=== PATIENT | male | born 1960 | race Caucasian/White ===

== ENCOUNTER 2025-04-03 01:46 | Observation (INO) | payer BC ==
[2025-04-03] MEDS ORDERED: Sodium Chloride 0.9% 1000 ML 1,000 ML ONE (02:18)
[2025-04-03] MEDS: Sodium Chloride 0.9% 1000 ML 1,000 ML IV SCH ×2 (02:18→05:49)
--- NOTE | 2025-04-03 02:20 | ERPHSYRPT ---
- History of Present Illness Time Seen by Provider: 04/03/25 02:16 Historian: patient Exam Limitations: no limitations Patient Subjective Stated Complaint: "I've been constipated and my stomach has been swollen for 3-4 days, today around 4pm my stomach started hurting really bad". Triage Nursing Assessment: Pt presents to ER with complaints of abdominal distention and constipation for 3 days, RUQ abdominal pain that began today at approx 1600. Pt abdomen is full, tender, and round upon exam. Rates pain 10/10 scale and worsens with palpation. Pt states has tried milk of mag to help w/ symptoms and was able to have small bowel movement last night. Pt has had decreased appetite and an episode of vomiting yesterday. Pt is alert and oriented x 3. Skin is pink, warm, and dry. Respirations are easy. Bowel sounds are diminished throughout. Abdomen very tender upon exam. Able to ambulate and communicate without difficulty. Physician History: Patient is a 64-year-old male presents to our ED for evaluation of generalized abdominal pain. Patient states his abdomen is distended. He has not had a bowel movement in 3 to 4 days. Patient has been taking laxatives but states his bowel movements have been very small. Pain became acutely worse today at approximately 4 PM. No trauma no fever. Patient rates his pain 10 out of 10 if he moves. However patient declined pain medication. Patient states "I am not being on pain medication". Patient otherwise feels well. at bedside. They voiced no other complaints or concerns at this time. Portions of this note were created with voice recognition technology. There may be grammatical, spelling, punctuation or sound alike errors Timing/Duration: day(s) (4 days) Activities at Onset: none Quality: aching Abdominal Pain Onset Location: generalized abdomen (Generalized abdominal pain but worse in the right upper quadrant) Pain Radiation: no radiation Severity of Pain-Max: moderate Severity of Pain-Current: mild Modifying Factors: Improves With: palpation Associated Symptoms: denies symptoms Previous symptoms: no prior history Allergies/Adverse Reactions: acetaminophen [From Vicodin] Allergy (Intermediate, Verified 04/03/25 02:25) agitation/angry hydrocodone [From Vicodin] Allergy (Intermediate, Verified 04/03/25 02:25) agitation/angry Home Medications: Furosemide 20 mg [Lasix 20 mg] 20 mg PO DAILY 04/03/25 [History] Potassium Chloride Tab* [Klor Con] 20 meq PO DAILY 04/03/25 [History] Tamsulosin HCl [Flomax] 0.4 mg PO DAILY 04/03/25 [History] Testosterone Cypionate 0.5 ml SQ WEEKLY 04/03/25 [History] armodafiniL [Armodafinil] 150 mg PO DAILY 04/03/25 [History] Hx Tetanus, Diphtheria Vaccination/Date Given: No Hx Influenza Vaccination/Date Given: No Hx Pneumococcal Vaccination/Date Given: No Immunizations Up to Date: Yes Travel Risk - International Travel Have you traveled outside of the country in past 3 weeks: No - Emerging Infectious Disease Are you exhibiting symptoms associated with any current EIDs: No - Review of Systems Constitutional: No Symptoms, No Fever, No Chills Eyes: No Symptoms Ears, Nose, & Throat: No Symptoms Respiratory: No Symptoms, No Cough, No Dyspnea Cardiac: No Symptoms, No Chest Pain, No Edema, No Syncope Abdominal/Gastrointestinal: No Symptoms, No Abdominal Pain, No Nausea, No Vomiting, No Diarrhea Genitourinary Symptoms: No Symptoms, No Dysuria Musculoskeletal: No Symptoms, No Back Pain, No Neck Pain Skin: No Symptoms, No Rash Neurological: No Symptoms, No Dizziness, No Focal Weakness, No Sensory Changes Psychological: No Symptoms Endocrine: No Symptoms Hematologic/Lymphatic: No Symptoms Immunological/Allergic: No Symptoms All Other Systems: Reviewed and Negative - Past Medical History Pertinent Past Medical History: Yes Neurological History: No Pertinent History, Seizures ENT History: No Pertinent History Cardiac History: No Pertinent History Respiratory History: No Pertinent History Endocrine Medical History: No Pertinent History Musculoskeletal History: No Pertinent History GI Medical History: No Pertinent History History: No Pertinent History Psycho-Social History: No Pertinent History Male Reproductive Disorders: Prostate Problems Other Medical History: childhood seizures (stopped at 14 years old) - Past Surgical History Past Surgical History: Yes Neuro Surgical History: No Pertinent History Cardiac: No Pertinent History Respiratory: No Pertinent History Gastrointestinal: No Pertinent History Genitourinary: No Pertinent History Musculoskeletal: Orthopedic Surgery Male Surgical History: No Pertinent History - Social History Smoking Status: Current every day smoker Exposure to second hand smoke: No Drug Use: none - Social Determinants of Health Will the patient participate in the screening: Yes Do you worry about a steady place to live?: No Do you have any problems with any of the following?: No known problems In the past 12 months,have you had to go without utilities?: No Transportation Issues: No Has anyone in your support network made you feel unsafe?: No Have you or anyone in your house had to go w/o enough food: No - Nursing Vital Signs Nursing Vital Signs: Initial Vital Signs Temperature 98.6 F 04/03/25 01:51 Pulse Rate 91 H 04/03/25 01:51 Respiratory Rate 16 04/03/25 01:51 Blood Pressure 146/85 04/03/25 01:51 O2 Sat by Pulse Oximetry 98 04/03/25 01:51 Pain Scale Pain Intensity 10 - Physical Exam General Appearance: no apparent distress, alert Eye Exam: PERRL/EOMI, eyes nml inspection Ears, Nose, Throat Exam: normal ENT inspection, pharynx normal, moist mucous membranes Neck Exam: normal inspection, non-tender, supple, full range of motion Respiratory Exam: normal breath sounds, lungs clear, airway intact, No respiratory distress Cardiovascular Exam: regular rate/rhythm, normal heart sounds Gastrointestinal/Abdomen Exam: soft, tenderness, distention, No mass Back Exam: normal inspection, normal range of motion, No CVA tenderness, No vertebral tenderness Extremity Exam: normal inspection, normal range of motion, pelvis stable Neurologic Exam: alert, oriented x 3, cooperative, normal mood/affect, sensation nml, No motor deficits Skin Exam: normal color, warm, dry Lymphatic Exam: No adenopathy SpO2 Interpretation: normal SpO2: 96 O2 Delivery: Room Air - Course Nursing assessment & vital signs reviewed: Yes - CT Exams Abdomen/Pelvis CT Interpretation: Tele-radiologist Report (Acute calculus cholecystitis. There is a 17 mm gallstone adjacent to the neck of the gallbladder) Ordered Tests: Active Orders 24 hr Category Date Time Status IV Insertion STAT Care 04/03/25 02:14 Active ABDOMEN AND PELVIS W/0 CONTRAS [CT] Stat Exams 04/03/25 02:14 Completed CBC W DIFF Stat Lab 04/03/25 02:22 Completed CMP Stat Lab 04/03/25 02:22 Completed LIPASE Stat Lab 04/03/25 02:22 Completed TROPONIN Q4H Lab 04/03/25 02:22 Completed TROPONIN Q4H Lab 04/03/25 06:15 Ordered TROPONIN Q4H Lab 04/03/25 10:15 Ordered UA W/RFX UR CULTURE Stat Lab 04/03/25 02:17 Completed Transfer Order Routine Transfer 04/03/25 Ordered Medication Summary Generic Name Dose Route Start Last Admin Trade Name Estrella PRN Reason Stop Dose Admin Sodium Chloride 1,000 mls @ 100 mls/hr 04/03/25 02:15 04/03/25 02:18 Sodium Chloride 0.9% 1000 Ml IV 05/03/25 02:14 100 mls/hr .Q10H GODWIN Administration Metronidazole 500 mg in 100 mls @ 200 mls/hr 04/03/25 03:38 04/03/25 03:49 Flagyl 500 Mg Ivpb IV 04/03/25 04:07 200 mls/hr STAT STA 200 mls/hr Administration Ceftriaxone Sodium 2 gm in 100 mls @ 200 mls/hr 04/03/25 03:55 Rocephin 2 Gm/100 Ml Nacl IV 04/03/25 04:24 STAT ONE Discontinued Medications Generic Name Dose Route Start Last Admin Trade Name Estrella PRN Reason Stop Dose Admin Levofloxacin/Dextrose 500 mg in 100 mls @ 100 mls/hr 04/03/25 03:38 Levofloxacin 500mg/100ml D5w IV 04/03/25 04:37 STAT STA Metronidazole Confirm 04/03/25 03:44 Flagyl 500 Mg Ivpb Administered 04/03/25 03:45 Dose 500 mg in 100 mls @ ud IV .STK-MED ONE Ketorolac Tromethamine 30 mg 04/03/25 02:34 04/03/25 02:37 Ketorolac Tromethamine 30 Mg/Ml Inj IV 04/03/25 02:35 30 mg STAT ONE Administration Ketorolac Tromethamine Confirm 04/03/25 02:35 Ketorolac Tromethamine 30 Mg/Ml Inj Administered 04/03/25 02:36 Dose 30 mg .ROUTE .STK-MED ONE Lab/Rad Data: Laboratory Result Diagrams 04/03/25 02:22 04/03/25 02:22 Laboratory Results 04/03/25 04/03/25 04/03/25 Range/Units 02:22 02:22 02:22 WBC 11.8 H (4.23-9.07) x10^3/uL RBC 4.95 (4.63-6.08) x10^6/uL Hgb 14.4 (13.7-17.5) g/dL Hct 42.8 (40.1-51.0) % MCV 86.5 (79.0-92.2) fL MCH 29.1 (25.7-32.2) pg MCHC 33.6 (32.3-36.5) g/dL RDW 13.9 (11.6-14.4) % Plt Count 287 (163-337) x10^3/uL MPV 10.0 (9.4-12.4) fL Gran % 64.0 (34.0-67.9) % Immature Gran % (Auto) 0.5 H (0.001-0.429) % Nucleat RBC Rel Count 0.0 (0.00-0.2) % Eos # (Auto) 0.33 (0.04-0.54) x10^3/uL Immature Gran # (Auto) 0.06 H (0.001-0.031) x10^3u/L Absolute Lymphs (auto) 2.65 (1.32-3.57) x10^3/uL Absolute Monos (auto) 1.16 H (0.30-0.82) x10^3/uL Absolute Nucleated RBC 0.00 (0.00-0.012) x10^3u/L Lymphocytes % 22.5 (21.8-53.1) % Monocytes % 9.8 (5.3-12.2) % Eosinophils % 2.8 (0.8-7.0) % Basophils % 0.4 (0.2-1.2) % Absolute Granulocytes 7.53 H (1.78-5.38) x10^3/uL Basophils # 0.05 (0.01-0.08) x10^3/uL Sodium 136 (135-145) mmol/L Potassium 4.5 (3.5-5.1) mmol/L Chloride 93 L (98-107) mmol/L Carbon Dioxide 32 H (22-30) mmol/L Anion Gap 15.5 H (5-15) MEQ/L BUN 9 (9-20) mg/dL Creatinine 0.71 (0.66-1.25) mg/dL Estimated GFR 103.7 ML/MIN Glucose 106 (74-106) mg/dL Calcium 9.8 (8.4-10.2) mg/dL Total Bilirubin 0.60 (0.2-1.3) mg/dL AST 26 (17-59) U/L ALT 23 (0-50) U/L Alkaline Phosphatase 72 (38-126) U/L Troponin I < 0.012 (0.000-0.033) ng/mL Serum Total Protein 7.3 (6.3-8.2) g/dL Albumin 4.4 (3.5-5.0) g/dL Lipase 209 (23-300) U/L Urine Color (Yellow) Urine Appearance (Clear) Urine pH (4.6-8.0) Ur Specific [place] (1.005-1.030) Urine Protein (Negative) Urine Glucose (UA) (Negative) mg/dL Urine Ketones (Negative) Urine Blood (Negative) Urine Nitrite (Negative) Urine Bilirubin (Negative) Urine Urobilinogen (0.2) mg/dL Ur Leukocyte Esterase (Negative) U Hyaline Cast (Auto) (0-2) /LPF Urine Microscopic RBC (0-5) /HPF Urine Microscopic WBC (0-5) /HPF Ur Epithelial Cells (None Seen) /HPF Urine Bacteria (None Seen) /HPF Urine Culture Reflexed (NO) 04/03/25 Range/Units 02:17 WBC (4.23-9.07) x10^3/uL RBC (4.63-6.08) x10^6/uL Hgb (13.7-17.5) g/dL Hct (40.1-51.0) % MCV (79.0-92.2) fL MCH (25.7-32.2) pg MCHC (32.3-36.5) g/dL RDW (11.6-14.4) % Plt Count (163-337) x10^3/uL MPV (9.4-12.4) fL Gran % (34.0-67.9) % Immature Gran % (Auto) (0.001-0.429) % Nucleat RBC Rel Count (0.00-0.2) % Eos # (Auto) (0.04-0.54) x10^3/uL Immature Gran # (Auto) (0.001-0.031) x10^3u/L Absolute Lymphs (auto) (1.32-3.57) x10^3/uL Absolute Monos (auto) (0.30-0.82) x10^3/uL Absolute Nucleated RBC (0.00-0.012) x10^3u/L Lymphocytes % (21.8-53.1) % Monocytes % (5.3-12.2) % Eosinophils % (0.8-7.0) % Basophils % (0.2-1.2) % Absolute Granulocytes (1.78-5.38) x10^3/uL Basophils # (0.01-0.08) x10^3/uL Sodium (135-145) mmol/L Potassium (3.5-5.1) mmol/L Chloride (98-107) mmol/L Carbon Dioxide (22-30) mmol/L Anion Gap (5-15) MEQ/L BUN (9-20) mg/dL Creatinine (0.66-1.25) mg/dL Estimated GFR ML/MIN Glucose (74-106) mg/dL Calcium (8.4-10.2) mg/dL Total Bilirubin (0.2-1.3) mg/dL AST (17-59) U/L ALT (0-50) U/L Alkaline Phosphatase (38-126) U/L Troponin I (0.000-0.033) ng/mL Serum Total Protein (6.3-8.2) g/dL Albumin (3.5-5.0) g/dL Lipase (23-300) U/L Urine Color Yellow (Yellow) Urine Appearance Clear (Clear) Urine pH 7.0 (4.6-8.0) Ur Specific [place] <=1.005 (1.005-1.030) Urine Protein Negative (Negative) Urine Glucose (UA) Negative (Negative) mg/dL Urine Ketones Negative (Negative) Urine Blood Negative (Negative) Urine Nitrite Negative (Negative) Urine Bilirubin Negative (Negative) Urine Urobilinogen 0.2 (0.2) mg/dL Ur Leukocyte Esterase Negative (Negative) U Hyaline Cast (Auto) NONE SEEN (0-2) /LPF Urine Microscopic RBC 0-2 (0-5) /HPF Urine Microscopic WBC 0-2 (0-5) /HPF Ur Epithelial Cells None Seen (None Seen) /HPF Urine Bacteria None Seen (None Seen) /HPF Urine Culture Reflexed NO (NO) - Progress Progress: improved Progress Note: Case discussed with Dr. Puente at 3:52 AM. He advises Donato and Rashaun. Patient to be admitted to the hospitalist service. 04/03/25 03:[address] Ashley at 4:01 AM 04/03/25 04:01 64-year-old male presents to our ED for evaluation of right upper quadrant pain. Physical exam reveals diffuse abdominal tenderness however more so on the right upper quadrant. Laboratory workup reveals a leukocytosis of 11. UA negative for UTI. CT scan confirms calculus cholecystitis. Liver enzymes are normal. Patient afebrile vitals are stable. Case discussed with general surgeon and hospitalist. Patient will require hospitalization for further evaluation and treatment. Patient agrees to admission to [facility] for further evaluation and treatment. at bedside. They voiced no other complaints or concerns at this time. Portions of this note were created with voice recognition technology. There may be grammatical, spelling, punctuation or sound alike errors Complexity of problem addressed is moderate acute complicated. No critical care time. Complexity of data reviewed and analyzed as extensive. Test ordered test reviewed results analyzed and correlated clinically with history and physical exam. Management discussed with both general surgeon and hospitalist. Patient will be admitted for further evaluation and treatment. Risk of complication and or risk of morbidity/mortality of patient management is high. Patient will be admitted for further evaluation and treatment/cholecystectomy this morning. Vital stable. Time spent admit patient is approximately 20 minutes. Plan of care established for shared decision making. No social determinants of health present to impede follow-up. Portions of this note were created with voice recognition technology. There may be grammatical, spelling, punctuation or sound alike errors 04/03/25 04:03 Counseled pt/family regarding: lab results, diagnosis, rad results - Departure Departure Disposition: Observation Clinical Impression: Right upper quadrant pain, Leukocytosis, Cholecystitis Condition: Stable Critical Care Time: No Referrals: SUSI THORNTON MD [Primary Care Provider, [facility]] - Follow up/PCP as directed
[2025-04-03 02:24] LABS: Absolute Neutrophil Ct (ANC) 7.53 x10^3/uL (1.78-5.38); BASOPHIL % 0.4 % (0.2-1.2); Basophil (Absolute #) 0.05 x10^3/uL (0.01-0.08); Eosinophil % 2.8 % (0.8-7.0); Eosinophil (Absolute #) 0.33 x10^3/uL (0.04-0.54); Hematocrit 42.8 % (40.1-51.0); Hemoglobin 14.4 g/dL (13.7-17.5); IMMATURE GRAN # 0.06 x10^3u/L (0.001-0.031); IMMATURE GRAN % 0.5 % (0.001-0.429); Lymphocyte (Absolute #) 2.65 x10^3/uL (1.32-3.57); Lymphocytes % 22.5 % (21.8-53.1); Mean Cell Volume 86.5 fL (79.0-92.2); Mean Corpuscular Hemoglobin 29.1 pg (25.7-32.2); Mean Corpuscular Hgb Concent. 33.6 g/dL (32.3-36.5); Monocyte (Absolute #) 1.16 x10^3/uL (0.30-0.82); Monocytes % 9.8 % (5.3-12.2); Platelet Count 287 x10^3/uL (163-337); Red Blood Count 4.95 x10^6/uL (4.63-6.08); Red Cell Distribution Width 13.9 % (11.6-14.4); White Blood Count 11.8 x10^3/uL (4.23-9.07)
[2025-04-03 02:31] LABS: ALBUMIN 4.4 g/dL (3.5-5.0); ANION GAP 15.5 MEQ/L (5-15); BILIRUBIN,TOTAL 0.6 mg/dL (0.2-1.3); Calcium 9.8 mg/dL (8.4-10.2); Creatinine 1 0.71 mg/dL (0.66-1.25); EST GLOMERULAR FILTRATION RATE 103.7 ML/MIN; Potassium 4.5 mmol/L (3.5-5.1); Total Protein 7.3 g/dL (6.3-8.2)
[2025-04-03 02:32] LABS: Appearance Clear (Clear); Bacteria None Seen /HPF (None Seen); Bilirubin Negative (Negative); Blood Negative (Negative); Epithelial Cells None Seen /HPF (None Seen); Glucose, Urine Negative (Negative); Hyaline Casts NONE SEEN /LPF (0-2); Ketones Negative (Negative); Leukocyte Esterase Negative (Negative); Nitrite Negative (Negative); Protein,Urine Dip Negative (Negative); RBC 0-2 /HPF (0-5); Specific Gravity <=1.005 (1.005-1.030); Urobilinogen 0.2 mg/dL (0.2); WBC 0-2 /HPF (0-5)
[2025-04-03] MEDS ORDERED: TORAdol 30 mg Injection ONE (02:35)
[2025-04-03] MEDS: TORAdol 30 mg Injection IV ONE (02:37)
--- NOTE | 2025-04-03 03:27 | XRAY ---
CLINICAL HISTORY: pain COMPARISON: None. TECHNIQUE: Contiguous axial images were obtained from the level of the diaphragm to the pubic symphysis without intravenous or oral contrast. Coronal and sagittal reconstructions were likewise performed and indicated to increase the sensitivity for detecting clinically relevant pathology. CT scan was performed according to ALARA (as low as reasonable achievable). FINDINGS: The visualized lung bases are clear. Evaluation of the abdominal and pelvic visceral organs is limited without intravenous contrast. The unenhanced liver, spleen, pancreas, and adrenal glands are grossly unremarkable. The gallbladder is distended and shows a calculus of size 17 mm the neck region with thickened edematous wall (wall thickness measures 7-8 mm) with adjacent fat stranding.. The kidneys are normal in size and attenuation without obvious calcification. There is no hydronephrosis or perinephric stranding. The ureters are normal in caliber. No adenopathy or fluid collections are seen. No evidence of focal or diffuse bowel wall thickening or evidence of bowel obstruction is seen. No evidence of inflamed appendix. The aorta is normal in caliber. The urinary bladder is normal in contour. Pelvic viscera are grossly unremarkable. No aggressive appearing osseous lesions are identified. Diffuse atherosclerotic calcification is noted involving aorta iliac arteries. Multiple small uncomplicated colonic diverticulosis. IMPRESSION: 1. Calculus cholecystitis. 2. Diffuse atherosclerotic calcification is noted involving aorta iliac arteries. 3. Multiple small uncomplicated colonic diverticulosis. Electronically Signed by: Trevor Taylor MD. (04/03/2025 03:23:25 EDT)
[2025-04-03] MEDS ORDERED: FLAGYL 500 MG IVPB 500 MG/100 ML BAG IV ONE (03:44)
[2025-04-03] MEDS: FLAGYL 500 MG IVPB 500 MG/100 ML BAG IV STA (03:49)
[2025-04-03] MEDS ORDERED: ROCEPHIN 2 GM/100 ML NACL 2 GM/100 ML IVPB IV ONE (04:13)
[2025-04-03] MEDS: ROCEPHIN 2 GM/100 ML NACL 2 GM/100 ML IVPB IV ONE (04:18)
[2025-04-03] MEDS: Levofloxacin 500MG/100ML D5W 500 MG/100 ML BAG IV STA (04:19)
[2025-04-03] MEDS ORDERED: TESTOSTERONE CYPIONATE 200 MG/ML SQ SCH (05:15)
[2025-04-03] MEDS ORDERED: FEVERALL 650 MG PR PRN (05:21)
--- NOTE | 2025-04-03 05:29 | PCM.HP ---
History of Present Illness - Chief Complaint Chief Complaint: Calculus cholecystitis Date: 04/03/25 History of Present Illness: is a 64 year old male who presented to the ED with generalized abdominal pain, but most prominent in the right upper quadrant and associated with distension. He reported not having a bowel movement in 3 to 4 days. Patient has been taking laxatives but states his bowel movements have been very small. Pain became acutely worse today at approximately 4 PM yesterday. He denies trauma no fever. Patient rates his pain 10 out of 10 if he moves. He has no history of CAD and denied chest pain or dyspnea. The patient's is at [facility] during my evaluation. In the ED, the patient was noted to have acute calculous cholecystitis. Surgery was consulted with an intention to operate on the patient later today. - Review of Systems Constitutional: No Symptoms Eyes: No Symptoms Ears, Nose, & Throat: No Symptoms Respiratory: No Symptoms Cardiac: No Symptoms Abdominal/Gastrointestinal: Abdominal Pain, Constipation Genitourinary Symptoms: No Symptoms Musculoskeletal: No Symptoms Skin: No Symptoms Neurological: No Symptoms Psychological: No Symptoms Endocrine: No Symptoms Hematologic/Lymphatic: No Symptoms Immunological/Allergic: No Symptoms All Other Systems: Reviewed and Negative Medications & Allergies Home Medications: Home Medication List Furosemide 20 mg [Lasix 20 mg] 20 mg PO DAILY 04/03/25 [History Confirmed 04/03/25] Potassium Chloride Tab* [Klor Con] 20 meq PO DAILY 04/03/25 [History Confirmed 04/03/25] Tamsulosin HCl [Flomax] 0.4 mg PO DAILY 04/03/25 [History Confirmed 04/03/25] Testosterone Cypionate 0.5 ml SQ WEEKLY 04/03/25 [History Confirmed 04/03/25] armodafiniL [Armodafinil] 150 mg PO DAILY 04/03/25 [History Confirmed 04/03/25] Allergies/Adverse Reactions: Allergies Allergy/AdvReac Type Severity Reaction Status Date / Time acetaminophen [From Vicodin] Allergy Intermediate Verified 04/03/25 02:25 hydrocodone [From Vicodin] Allergy Intermediate Verified 04/03/25 02:25 - Past Medical History Past Medical History: Yes Neurological History: No Pertinent History, Seizures ENT History: No Pertinent History Cardiac History: No Pertinent History Respiratory History: No Pertinent History Endocrine Medical History: No Pertinent History Musculoskelatal History: No Pertinent History GI Medical History: No Pertinent History History: No Pertinent History Pyscho-Social History: No Pertinent History Male Reproductive Disorders: Prostate Problems Comment: childhood seizures (stopped at 14 years old) - Past Surgical History Past Surgical History: Yes Neuro Surgical History: No Pertinent History Cardiac History: No Pertinent History Respiratory Surgery: No Pertinent History GI Surgical History: No Pertinent History Genitourinary Surgical Hx: No Pertinent History Musculskeletal Surgical Hx: Orthopedic Surgery Male Surgical History: No Pertinent History Significant Family History: no pertinent family hx - Social History Smoking Status: Current every day smoker Exposure to second hand smoke: No Alcohol: Daily Drug Use: none - Social Determinants of Health Will the patient participate in the screening: Yes Do you worry about a steady place to live?: No Do you have any problems with any of the following?: No known problems In the past 12 months,have you had to go without utilities?: No Have you or anyone in your house had to go without enough: No Transportation Issues: No Has anyone in your support network made you feel unsafe?: No - Physical Exam Vital Signs: Vital Signs - 24 hr Temp Pulse Resp BP BP Pulse Ox 04/03/25 04:30 81 120/65 96 04/03/25 04:06 96 04/03/25 04:00 82 16 120/70 94 L 04/03/25 03:30 80 18 105/65 95 04/03/25 03:00 89 16 132/77 96 04/03/25 02:45 88 126/79 95 04/03/25 02:13 91 H 18 121/77 96 04/03/25 01:51 98.6 F 91 H 16 146/85 98 General Appearance: no apparent distress, alert Neurologic Exam: alert, oriented x 3, cooperative, dry kiln feeder II-XII nml as tested, normal mood/affect, nml cerebellar function Eye Exam: PERRL/EOMI, eyes nml inspection Ears, Nose, Throat Exam: normal ENT inspection Neck Exam: normal inspection, non-tender, supple, full range of motion Respiratory Exam: normal breath sounds, lungs clear, airway intact Cardiovascular Exam: regular rate/rhythm, normal heart sounds Gastrointestinal/Abdomen Exam: soft, normal bowel sounds, tenderness (RUQ), distention Back Exam: normal range of motion Extremity Exam: normal inspection, normal range of motion Skin Exam: normal color Results - Labs Lab/Micro Results: Lab Results-Last 24 Hours 04/03/25 04/03/25 04/03/25 Range/Units 02:17 02:22 02:22 WBC 11.8 H (4.23-9.07) x10^3/uL RBC 4.95 (4.63-6.08) x10^6/uL Hgb 14.4 (13.7-17.5) g/dL Hct 42.8 (40.1-51.0) % MCV 86.5 (79.0-92.2) fL MCH 29.1 (25.7-32.2) pg MCHC 33.6 (32.3-36.5) g/dL RDW 13.9 (11.6-14.4) % Plt Count 287 (163-337) x10^3/uL MPV 10.0 (9.4-12.4) fL Gran % 64.0 (34.0-67.9) % Immature Gran % (Auto) 0.5 H (0.001-0.429) % Nucleat RBC Rel Count 0.0 (0.00-0.2) % Eos # (Auto) 0.33 (0.04-0.54) x10^3/uL Immature Gran # (Auto) 0.06 H (0.001-0.031) x10^3u/L Absolute Lymphs (auto) 2.65 (1.32-3.57) x10^3/uL Absolute Monos (auto) 1.16 H (0.30-0.82) x10^3/uL Absolute Nucleated RBC 0.00 (0.00-0.012) x10^3u/L Lymphocytes % 22.5 (21.8-53.1) % Monocytes % 9.8 (5.3-12.2) % Eosinophils % 2.8 (0.8-7.0) % Basophils % 0.4 (0.2-1.2) % Absolute Granulocytes 7.53 H (1.78-5.38) x10^3/uL Basophils # 0.05 (0.01-0.08) x10^3/uL Sodium 136 (135-145) mmol/L Potassium 4.5 (3.5-5.1) mmol/L Chloride 93 L (98-107) mmol/L Carbon Dioxide 32 H (22-30) mmol/L Anion Gap 15.5 H (5-15) MEQ/L BUN 9 (9-20) mg/dL Creatinine 0.71 (0.66-1.25) mg/dL Estimated GFR 103.7 ML/MIN Glucose 106 (74-106) mg/dL Calcium 9.8 (8.4-10.2) mg/dL Total Bilirubin 0.60 (0.2-1.3) mg/dL AST 26 (17-59) U/L ALT 23 (0-50) U/L Alkaline Phosphatase 72 (38-126) U/L Troponin I (0.000-0.033) ng/mL Serum Total Protein 7.3 (6.3-8.2) g/dL Albumin 4.4 (3.5-5.0) g/dL Lipase 209 (23-300) U/L Urine Color Yellow (Yellow) Urine Appearance Clear (Clear) Urine pH 7.0 (4.6-8.0) Ur Specific [place] <=1.005 (1.005-1.030) Urine Protein Negative (Negative) Urine Glucose (UA) Negative (Negative) mg/dL Urine Ketones Negative (Negative) Urine Blood Negative (Negative) Urine Nitrite Negative (Negative) Urine Bilirubin Negative (Negative) Urine Urobilinogen 0.2 (0.2) mg/dL Ur Leukocyte Esterase Negative (Negative) U Hyaline Cast (Auto) NONE SEEN (0-2) /LPF Urine Microscopic RBC 0-2 (0-5) /HPF Urine Microscopic WBC 0-2 (0-5) /HPF Ur Epithelial Cells None Seen (None Seen) /HPF Urine Bacteria None Seen (None Seen) /HPF Urine Culture Reflexed NO (NO) 04/03/25 Range/Units 02:22 WBC (4.23-9.07) x10^3/uL RBC (4.63-6.08) x10^6/uL Hgb (13.7-17.5) g/dL Hct (40.1-51.0) % MCV (79.0-92.2) fL MCH (25.7-32.2) pg MCHC (32.3-36.5) g/dL RDW (11.6-14.4) % Plt Count (163-337) x10^3/uL MPV (9.4-12.4) fL Gran % (34.0-67.9) % Immature Gran % (Auto) (0.001-0.429) % Nucleat RBC Rel Count (0.00-0.2) % Eos # (Auto) (0.04-0.54) x10^3/uL Immature Gran # (Auto) (0.001-0.031) x10^3u/L Absolute Lymphs (auto) (1.32-3.57) x10^3/uL Absolute Monos (auto) (0.30-0.82) x10^3/uL Absolute Nucleated RBC (0.00-0.012) x10^3u/L Lymphocytes % (21.8-53.1) % Monocytes % (5.3-12.2) % Eosinophils % (0.8-7.0) % Basophils % (0.2-1.2) % Absolute Granulocytes (1.78-5.38) x10^3/uL Basophils # (0.01-0.08) x10^3/uL Sodium (135-145) mmol/L Potassium (3.5-5.1) mmol/L Chloride (98-107) mmol/L Carbon Dioxide (22-30) mmol/L Anion Gap (5-15) MEQ/L BUN (9-20) mg/dL Creatinine (0.66-1.25) mg/dL Estimated GFR ML/MIN Glucose (74-106) mg/dL Calcium (8.4-10.2) mg/dL Total Bilirubin (0.2-1.3) mg/dL AST (17-59) U/L ALT (0-50) U/L Alkaline Phosphatase (38-126) U/L Troponin I < 0.012 (0.000-0.033) ng/mL Serum Total Protein (6.3-8.2) g/dL Albumin (3.5-5.0) g/dL Lipase (23-300) U/L Urine Color (Yellow) Urine Appearance (Clear) Urine pH (4.6-8.0) Ur Specific [place] (1.005-1.030) Urine Protein (Negative) Urine Glucose (UA) (Negative) mg/dL Urine Ketones (Negative) Urine Blood (Negative) Urine Nitrite (Negative) Urine Bilirubin (Negative) Urine Urobilinogen (0.2) mg/dL Ur Leukocyte Esterase (Negative) U Hyaline Cast (Auto) (0-2) /LPF Urine Microscopic RBC (0-5) /HPF Urine Microscopic WBC (0-5) /HPF Ur Epithelial Cells (None Seen) /HPF Urine Bacteria (None Seen) /HPF Urine Culture Reflexed (NO) - Radiology Impressions Radiology Exams & Impressions: Radiology Procedures Category Date Time Status ABDOMEN AND PELVIS W/0 CONTRAS [CT] Stat Exams 04/03/25 02:14 Completed - Other Procedures and Tests Respiratory Therapy 04/03/25 05:23 Incentive Spirometry TID Assessment/Plan (1) Cholecystitis Current Visit: Yes Status: Acute Assessment & Plan: NPO. Surgery plans cholecystectomy today. IV fluids and IV antibiotics. Code(s): K81.9 - CHOLECYSTITIS, UNSPECIFIED (2) Right upper quadrant pain Current Visit: Yes Status: Acute Assessment & Plan: Analgesia. Will also need a postoperative bowel regimen. Code(s): R10.11 - RIGHT UPPER QUADRANT PAIN (3) Leukocytosis Current Visit: Yes Status: Acute Assessment & Plan: Will be on antibiotics for now. WBC elevation is mild. Code(s): D72.829 - ELEVATED WHITE BLOOD CELL COUNT, UNSPECIFIED Telemedicine Encounter - Telemedicine Encounter Telemedicine Encounter: "The entirety of this encounter was performed via Telemedicine" This visit was performed using real-time audio and video connection between my location and thepatients locationwith the assistance of a surrogateat the patients location. Written or verbal consent was obtained from the patient/guardian to perform this visit [facility]. Any patient questions regarding the telemedicine interaction were answered. Please note that this admission required 42 minutes to complete.
[2025-04-03] MEDS: ROCEPHIN 1 GM / 100 ML NaCl 1 GM/100 ML IVPB IV SCH (05:36)
[2025-04-03] MEDS: FLAGYL 500 MG IVPB 500 MG/100 ML BAG IV SCH (05:36)
[2025-04-03] MEDS: TORAdol 30 mg Injection IV PRN (06:02)
[2025-04-03] MEDS ORDERED: MEDICATION INTERVENTION MC SCH ×2 (07:30→07:45)
[2025-04-03] MEDS ORDERED: ARMODAFINIL 50 MG PO SCH (10:00)
--- NOTE | 2025-04-03 14:11 | PCM.CONS ---
History of Present Illness - Reason for Consult Chief Complaint: calculus cholecystitis Requesting Provider: ASHKAN ARCE MD Consulting Provider: TESSY MENDOZA MD History of Present Illness: is a 64 year old male. hx per chart review and dw pt and family. presents with RUQ abdominal pain ct with stone at neck of yariel. pain continued today better as long as he doesn't move or take a deep breath. no emesis. " - History of Present Illness Time Seen by Provider: 04/03/25 02:16 Historian: patient Exam Limitations: no limitations Patient Subjective Stated Complaint: "I've been constipated and my stomach has been swollen for 3-4 days, today around 4pm my stomach started hurting really bad". Triage Nursing Assessment: Pt presents to ER with complaints of abdominal distention and constipation for 3 days, RUQ abdominal pain that began today at approx 1600. Pt abdomen is full, tender, and round upon exam. Rates pain 10/10 scale and worsens with palpation. Pt states has tried milk of mag to help w/ symptoms and was able to have small bowel movement last night. Pt has had decreased appetite and an episode of vomiting yesterday. Pt is alert and oriented x 3. Skin is pink, warm, and dry. Respirations are easy. Bowel sounds are diminished throughout. Abdomen very tender upon exam. Able to ambulate and communicate without difficulty. Physician History: Patient is a 64-year-old male presents to our ED for evaluation of generalized abdominal pain. Patient states his abdomen is distended. He has not had a bowel movement in 3 to 4 days. Patient has been taking laxatives but states his bowel movements have been very small. Pain became acutely worse today at approximately 4 PM. No trauma no fever. Patient rates his pain 10 out of 10 if he moves. However patient declined pain medication. Patient states "I am not being on pain medication". Patient otherwise feels well. at bedside. They voiced no other complaints or concerns at this time. Portions of this note were created with voice recognition technology. There may be grammatical, spelling, punctuation or sound alike errors Timing/Duration: day(s) (4 days) Activities at Onset: none Quality: aching Abdominal Pain Onset Location: generalized abdomen (Generalized abdominal pain but worse in the right upper quadrant) Pain Radiation: no radiation Severity of Pain-Max: moderate Severity of Pain-Current: mild Modifying Factors: Improves With: palpation Associated Symptoms: denies symptoms Previous symptoms: no prior history Allergies/Adverse Reactions: acetaminophen [From Vicodin] Allergy (Intermediate, Verified 04/03/25 02:25) agitation/angry hydrocodone [From Vicodin] Allergy (Intermediate, Verified 04/03/25 02:25) agitation/angry Home Medications: Furosemide 20 mg [Lasix 20 mg] 20 mg PO DAILY 04/03/25 [History] Potassium Chloride Tab* [Klor Con] 20 meq PO DAILY 04/03/25 [History] Tamsulosin HCl [Flomax] 0.4 mg PO DAILY 04/03/25 [History] Testosterone Cypionate 0.5 ml SQ WEEKLY 04/03/25 [History] armodafiniL [Armodafinil] 150 mg PO DAILY 04/03/25 [History] Hx Tetanus, Diphtheria Vaccination/Date Given: No Hx Influenza Vaccination/Date Given: No Hx Pneumococcal Vaccination/Date Given: No Immunizations Up to Date: Yes Travel Risk - International Travel Have you traveled outside of the country in past 3 weeks: No - Emerging Infectious Disease Are you exhibiting symptoms associated with any current EIDs: No - Review of Systems Constitutional: No Symptoms, No Fever, No Chills Eyes: No Symptoms Ears, Nose, & Throat: No Symptoms Respiratory: No Symptoms, No Cough, No Dyspnea Cardiac: No Symptoms, No Chest Pain, No Edema, No Syncope Abdominal/Gastrointestinal: No Symptoms, No Abdominal Pain, No Nausea, No Vomiting, No Diarrhea Genitourinary Symptoms: No Symptoms, No Dysuria Musculoskeletal: No Symptoms, No Back Pain, No Neck Pain Skin: No Symptoms, No Rash Neurological: No Symptoms, No Dizziness, No Focal Weakness, No Sensory Changes Psychological: No Symptoms Endocrine: No Symptoms Hematologic/Lymphatic: No Symptoms Immunological/Allergic: No Symptoms All Other Systems: Reviewed and Negative - Past Medical History Pertinent Past Medical History: Yes Neurological History: No Pertinent History, Seizures ENT History: No Pertinent History Cardiac History: No Pertinent History Respiratory History: No Pertinent History Endocrine Medical History: No Pertinent History Musculoskeletal History: No Pertinent History GI Medical History: No Pertinent History History: No Pertinent History Psycho-Social History: No Pertinent History Male Reproductive Disorders: Prostate Problems Other Medical History: childhood seizures (stopped at 14 years old) - Past Surgical History Past Surgical History: Yes Neuro Surgical History: No Pertinent History Cardiac: No Pertinent History Respiratory: No Pertinent History Gastrointestinal: No Pertinent History Genitourinary: No Pertinent History Musculoskeletal: Orthopedic Surgery Male Surgical History: No Pertinent History - Social History Smoking Status: Current every day smoker Exposure to second hand smoke: No Drug Use: none - Social Determinants of Health Will the patient participate in the screening: Yes Do you worry about a steady place to live?: No Do you have any problems with any of the following?: No known problems In the past 12 months,have you had to go without utilities?: No Transportation Issues: No Has anyone in your support network made you feel unsafe?: No Have you or anyone in your house had to go w/o enough food: No" Medications & Allergies Home Medications: Home Medication List Furosemide 20 mg [Lasix 20 mg] 20 mg PO DAILY 04/03/25 [History Confirmed 04/03/25] Potassium Chloride Tab* [Klor Con] 20 meq PO DAILY 04/03/25 [History Confirmed 04/03/25] Tamsulosin HCl [Flomax] 0.4 mg PO DAILY 04/03/25 [History Confirmed 04/03/25] Testosterone Cypionate 0.5 ml SQ WEEKLY 04/03/25 [History Confirmed 04/03/25] armodafiniL [Armodafinil] 150 mg PO DAILY 04/03/25 [History Confirmed 04/03/25] Allergies/Adverse Reactions: Allergies Allergy/AdvReac Type Severity Reaction Status Date / Time acetaminophen [From Vicodin] Allergy Intermediate Verified 04/03/25 02:25 hydrocodone [From Vicodin] Allergy Intermediate Verified 04/03/25 02:25 - Past Medical History Past Medical History: Yes Neurological History: No Pertinent History, Seizures ENT History: No Pertinent History Cardiac History: No Pertinent History Respiratory History: No Pertinent History Endocrine Medical History: No Pertinent History Musculoskelatal History: No Pertinent History GI Medical History: No Pertinent History History: No Pertinent History Pyscho-Social History: No Pertinent History Male Reproductive Disorders: Prostate Problems Comment: childhood seizures (stopped at 14 years old) - Past Surgical History Past Surgical History: Yes Neuro Surgical History: No Pertinent History Cardiac History: No Pertinent History Respiratory Surgery: No Pertinent History GI Surgical History: No Pertinent History Genitourinary Surgical Hx: No Pertinent History Musculskeletal Surgical Hx: Orthopedic Surgery Male Surgical History: No Pertinent History Significant Family History: no pertinent family hx - Social History Smoking Status: Never smoker Exposure to second hand smoke: No Alcohol: Daily Drug Use: none - Social Determinants of Health Will the patient participate in the screening: Yes Do you worry about a steady place to live?: No Do you have any problems with any of the following?: No known problems In the past 12 months,have you had to go without utilities?: No Have you or anyone in your house had to go without enough: No Transportation Issues: No Has anyone in your support network made you feel unsafe?: No Does the patient want assistance with any of the above?: No - Physical Exam Vital Signs: Vital Signs - 24 hr Temp Pulse Resp BP BP Pulse Ox 04/03/25 13:45 97.2 F 69 125/56 92 L 04/03/25 11:18 97.2 F 69 125/56 92 L 04/03/25 07:59 97.7 F 69 98/52 04/03/25 06:36 97.3 F 75 18 126/56 94 L 04/03/25 04:30 81 120/65 96 04/03/25 04:06 96 04/03/25 04:00 82 16 120/70 94 L 04/03/25 03:30 80 18 105/65 95 04/03/25 03:00 89 16 132/77 96 04/03/25 02:45 88 126/79 95 04/03/25 02:13 91 H 18 121/77 96 04/03/25 01:51 98.6 F 91 H 16 146/85 98 Additional Findings: 04/03/25 14:09 nad no scleal icterus neck symmetric nonlabored resps rrr nd, soft, ttp focal ruq. +paez. no edema Results - Labs Lab/Micro Results: Lab Results-Last 24 Hours 04/03/25 04/03/25 04/03/25 Range/Units 02:17 02:22 02:22 WBC 11.8 H (4.23-9.07) x10^3/uL RBC 4.95 (4.63-6.08) x10^6/uL Hgb 14.4 (13.7-17.5) g/dL Hct 42.8 (40.1-51.0) % MCV 86.5 (79.0-92.2) fL MCH 29.1 (25.7-32.2) pg MCHC 33.6 (32.3-36.5) g/dL RDW 13.9 (11.6-14.4) % Plt Count 287 (163-337) x10^3/uL MPV 10.0 (9.4-12.4) fL Gran % 64.0 (34.0-67.9) % Immature Gran % (Auto) 0.5 H (0.001-0.429) % Nucleat RBC Rel Count 0.0 (0.00-0.2) % Eos # (Auto) 0.33 (0.04-0.54) x10^3/uL Immature Gran # (Auto) 0.06 H (0.001-0.031) x10^3u/L Absolute Lymphs (auto) 2.65 (1.32-3.57) x10^3/uL Absolute Monos (auto) 1.16 H (0.30-0.82) x10^3/uL Absolute Nucleated RBC 0.00 (0.00-0.012) x10^3u/L Lymphocytes % 22.5 (21.8-53.1) % Monocytes % 9.8 (5.3-12.2) % Eosinophils % 2.8 (0.8-7.0) % Basophils % 0.4 (0.2-1.2) % Absolute Granulocytes 7.53 H (1.78-5.38) x10^3/uL Basophils # 0.05 (0.01-0.08) x10^3/uL Sodium 136 (135-145) mmol/L Potassium 4.5 (3.5-5.1) mmol/L Chloride 93 L (98-107) mmol/L Carbon Dioxide 32 H (22-30) mmol/L Anion Gap 15.5 H (5-15) MEQ/L BUN 9 (9-20) mg/dL Creatinine 0.71 (0.66-1.25) mg/dL Estimated GFR 103.7 ML/MIN Glucose 106 (74-106) mg/dL POC Glucometer (74 to 106) mg/dL Calcium 9.8 (8.4-10.2) mg/dL Total Bilirubin 0.60 (0.2-1.3) mg/dL AST 26 (17-59) U/L ALT 23 (0-50) U/L Alkaline Phosphatase 72 (38-126) U/L Troponin I (0.000-0.033) ng/mL Serum Total Protein 7.3 (6.3-8.2) g/dL Albumin 4.4 (3.5-5.0) g/dL Lipase 209 (23-300) U/L Urine Color Yellow (Yellow) Urine Appearance Clear (Clear) Urine pH 7.0 (4.6-8.0) Ur Specific [place] <=1.005 (1.005-1.030) Urine Protein Negative (Negative) Urine Glucose (UA) Negative (Negative) mg/dL Urine Ketones Negative (Negative) Urine Blood Negative (Negative) Urine Nitrite Negative (Negative) Urine Bilirubin Negative (Negative) Urine Urobilinogen 0.2 (0.2) mg/dL Ur Leukocyte Esterase Negative (Negative) U Hyaline Cast (Auto) NONE SEEN (0-2) /LPF Urine Microscopic RBC 0-2 (0-5) /HPF Urine Microscopic WBC 0-2 (0-5) /HPF Ur Epithelial Cells None Seen (None Seen) /HPF Urine Bacteria None Seen (None Seen) /HPF Urine Culture Reflexed NO (NO) 04/03/25 04/03/25 04/03/25 Range/Units 02:22 06:15 07:45 WBC (4.23-9.07) x10^3/uL RBC (4.63-6.08) x10^6/uL Hgb (13.7-17.5) g/dL Hct (40.1-51.0) % MCV (79.0-92.2) fL MCH (25.7-32.2) pg MCHC (32.3-36.5) g/dL RDW (11.6-14.4) % Plt Count (163-337) x10^3/uL MPV (9.4-12.4) fL Gran % (34.0-67.9) % Immature Gran % (Auto) (0.001-0.429) % Nucleat RBC Rel Count (0.00-0.2) % Eos # (Auto) (0.04-0.54) x10^3/uL Immature Gran # (Auto) (0.001-0.031) x10^3u/L Absolute Lymphs (auto) (1.32-3.57) x10^3/uL Absolute Monos (auto) (0.30-0.82) x10^3/uL Absolute Nucleated RBC (0.00-0.012) x10^3u/L Lymphocytes % (21.8-53.1) % Monocytes % (5.3-12.2) % Eosinophils % (0.8-7.0) % Basophils % (0.2-1.2) % Absolute Granulocytes (1.78-5.38) x10^3/uL Basophils # (0.01-0.08) x10^3/uL Sodium (135-145) mmol/L Potassium (3.5-5.1) mmol/L Chloride (98-107) mmol/L Carbon Dioxide (22-30) mmol/L Anion Gap (5-15) MEQ/L BUN (9-20) mg/dL Creatinine (0.66-1.25) mg/dL Estimated GFR ML/MIN Glucose (74-106) mg/dL POC Glucometer 101 (74 to 106) mg/dL Calcium (8.4-10.2) mg/dL Total Bilirubin (0.2-1.3) mg/dL AST (17-59) U/L ALT (0-50) U/L Alkaline Phosphatase (38-126) U/L Troponin I < 0.012 < 0.012 (0.000-0.033) ng/mL Serum Total Protein (6.3-8.2) g/dL Albumin (3.5-5.0) g/dL Lipase (23-300) U/L Urine Color (Yellow) Urine Appearance (Clear) Urine pH (4.6-8.0) Ur Specific [place] (1.005-1.030) Urine Protein (Negative) Urine Glucose (UA) (Negative) mg/dL Urine Ketones (Negative) Urine Blood (Negative) Urine Nitrite (Negative) Urine Bilirubin (Negative) Urine Urobilinogen (0.2) mg/dL Ur Leukocyte Esterase (Negative) U Hyaline Cast (Auto) (0-2) /LPF Urine Microscopic RBC (0-5) /HPF Urine Microscopic WBC (0-5) /HPF Ur Epithelial Cells (None Seen) /HPF Urine Bacteria (None Seen) /HPF Urine Culture Reflexed (NO) 04/03/25 04/03/25 Range/Units 10:08 13:14 WBC (4.23-9.07) x10^3/uL RBC (4.63-6.08) x10^6/uL Hgb (13.7-17.5) g/dL Hct (40.1-51.0) % MCV (79.0-92.2) fL MCH (25.7-32.2) pg MCHC (32.3-36.5) g/dL RDW (11.6-14.4) % Plt Count (163-337) x10^3/uL MPV (9.4-12.4) fL Gran % (34.0-67.9) % Immature Gran % (Auto) (0.001-0.429) % Nucleat RBC Rel Count (0.00-0.2) % Eos # (Auto) (0.04-0.54) x10^3/uL Immature Gran # (Auto) (0.001-0.031) x10^3u/L Absolute Lymphs (auto) (1.32-3.57) x10^3/uL Absolute Monos (auto) (0.30-0.82) x10^3/uL Absolute Nucleated RBC (0.00-0.012) x10^3u/L Lymphocytes % (21.8-53.1) % Monocytes % (5.3-12.2) % Eosinophils % (0.8-7.0) % Basophils % (0.2-1.2) % Absolute Granulocytes (1.78-5.38) x10^3/uL Basophils # (0.01-0.08) x10^3/uL Sodium (135-145) mmol/L Potassium (3.5-5.1) mmol/L Chloride (98-107) mmol/L Carbon Dioxide (22-30) mmol/L Anion Gap (5-15) MEQ/L BUN (9-20) mg/dL Creatinine (0.66-1.25) mg/dL Estimated GFR ML/MIN Glucose (74-106) mg/dL POC Glucometer 105 (74 to 106) mg/dL Calcium (8.4-10.2) mg/dL Total Bilirubin (0.2-1.3) mg/dL AST (17-59) U/L ALT (0-50) U/L Alkaline Phosphatase (38-126) U/L Troponin I < 0.012 (0.000-0.033) ng/mL Serum Total Protein (6.3-8.2) g/dL Albumin (3.5-5.0) g/dL Lipase (23-300) U/L Urine Color (Yellow) Urine Appearance (Clear) Urine pH (4.6-8.0) Ur Specific [place] (1.005-1.030) Urine Protein (Negative) Urine Glucose (UA) (Negative) mg/dL Urine Ketones (Negative) Urine Blood (Negative) Urine Nitrite (Negative) Urine Bilirubin (Negative) Urine Urobilinogen (0.2) mg/dL Ur Leukocyte Esterase (Negative) U Hyaline Cast (Auto) (0-2) /LPF Urine Microscopic RBC (0-5) /HPF Urine Microscopic WBC (0-5) /HPF Ur Epithelial Cells (None Seen) /HPF Urine Bacteria (None Seen) /HPF Urine Culture Reflexed (NO) - Radiology Impressions Radiology Exams & Impressions: Radiology Procedures Category Date Time Status ABDOMEN AND PELVIS W/0 CONTRAS [CT] Stat Exams 04/03/25 02:14 Completed - Other Procedures and Tests Respiratory Therapy 04/03/25 05:23 Incentive Spirometry TID Assessment/Plan (1) Cholecystitis Current Visit: Yes Status: Acute Assessment & Plan: acute cholecystitis. ttp on exam. ct with stone at neck. labs nonobstructive. images personally reviewed. discussed with patient and he wants to proceed with lap yariel. -lap yariel. possible open Code(s): K81.9 - CHOLECYSTITIS, UNSPECIFIED
[2025-04-03] MEDS ORDERED: propofoL IV ONE (14:59)
[2025-04-03] MEDS ORDERED: dexAMETHasone sodium phosphate ONE (15:00)
[2025-04-03] MEDS ORDERED: Zofran 4 MG/2 ML VIAL ONE ×2 (15:00→16:59)
[2025-04-03] MEDS ORDERED: ROCURONIUM BROMIDE IV ONE (15:00)
[2025-04-03] MEDS ORDERED: BRIDION 200MG/2ML IV ONE (15:00)
[2025-04-03] MEDS ORDERED: Xylocaine-Mpf 2% 5 Ml Vial ONE (15:00)
[2025-04-03] MEDS: [UNRECOGNIZED DRUG - OTHER] IV ONE (15:04)
[2025-04-03] MEDS: NACL IV ONE (15:04)
[2025-04-03] MEDS ORDERED: SUBLIMAZE 100 MCG/2 ML ONE ×2 (15:11→16:56)
[2025-04-03] MEDS ORDERED: Sensorcaine 0.25% 10 ML ONE (15:34)
[2025-04-03] MEDS ORDERED: [UNRECOGNIZED DRUG - OTHER] IV ONE (15:48)
[2025-04-03] MEDS ORDERED: NACL IV ONE (15:48)
[2025-04-03] MEDS: Flomax 0.4 MG PO SCH (18:15)
[2025-04-03] MEDS: Zofran 4 MG/2 ML VIAL IV PRN (18:24)
[2025-04-03] MEDS: NORCO 5/325 MG PO PRN (18:24)
[2025-04-03] MEDS: Ambien 10 MG PO SCH (22:09)
[2025-04-04 05:05] LABS: Absolute Neutrophil Ct (ANC) 10.33 x10^3/uL (1.78-5.38); BASOPHIL % 0.1 % (0.2-1.2); Basophil (Absolute #) 0.01 x10^3/uL (0.01-0.08); Eosinophil % 0.2 % (0.8-7.0); Eosinophil (Absolute #) 0.03 x10^3/uL (0.04-0.54); Hematocrit 43.3 % (40.1-51.0); Hemoglobin 13.8 g/dL (13.7-17.5); IMMATURE GRAN # 0.06 x10^3u/L (0.001-0.031); IMMATURE GRAN % 0.5 % (0.001-0.429); Lymphocyte (Absolute #) 0.93 x10^3/uL (1.32-3.57); Lymphocytes % 7.6 % (21.8-53.1); Mean Corpuscular Hemoglobin 28.7 pg (25.7-32.2); Mean Corpuscular Hgb Concent. 31.9 g/dL (32.3-36.5); Mean Platelet Volume 10.4 fL (9.4-12.4); Monocyte (Absolute #) 0.81 x10^3/uL (0.30-0.82); Monocytes % 6.7 % (5.3-12.2); Neutrophil % 84.9 % (34.0-67.9); Platelet Count 273 x10^3/uL (163-337); Red Blood Count 4.81 x10^6/uL (4.63-6.08); White Blood Count 12.2 x10^3/uL (4.23-9.07)
[2025-04-04 05:46] LABS: ANION GAP 15.7 MEQ/L (5-15); BILIRUBIN,TOTAL 0.4 mg/dL (0.2-1.3); Calcium 8.9 mg/dL (8.4-10.2); Creatinine 1 0.76 mg/dL (0.66-1.25); EST GLOMERULAR FILTRATION RATE 101.6 ML/MIN; Potassium 5.1 mmol/L (3.5-5.1); Total Protein 6.8 g/dL (6.3-8.2)
[2025-04-04] MEDS: NORCO 5/325 MG PO PRN (07:18)
[2025-04-04 09:14] VITALS: RESP 16
--- NOTE | 2025-04-04 12:01 | PCM.DS ---
Discharge Summary Date of Admission: 04/03/25 05:03 Date of Discharge: 04/04/25 Admitting Physician: ASHKAN ARCE MD Consults: Consults on Case 04/03/25 05:19 Consult Surgery ROUTINE Primary Care Provider: SUSI THORNTON Allergies Allergies acetaminophen [From Vicodin] Allergy (Intermediate, Verified 04/03/25 02:25) agitation/angry hydrocodone [From Vicodin] Allergy (Intermediate, Verified 04/03/25 02:25) agitation/angry Hospital Summary - Hospital Course Hospital Course: This is a 64-year-old male who initially presented to the emergency department with generalized abdominal pain, most pronounced in the right upper quadrant, along with abdominal distension. He reported no bowel movement for the past 34 days despite taking laxatives, and noted that any bowel movements he did have were minimal. His pain acutely worsened around 4 PM yesterday and was rated as 10/10 with movement. He denied any trauma, fever, chest pain, or shortness of breath. He has no history of coronary artery disease. The patients was present at the bedside during the evaluation. In the ED, he was diagnosed with acute calculous cholecystitis. Surgery was consulted, and he underwent a laparoscopic cholecystectomy yesterday. Today, he is post-operative day #2 with a RONNIE drain in place. Per the surgical team, he is stable for discharge with a prescription for Augmentin and instructions to leave the RONNIE drain in place. He will follow up with general surgery in 12 weeks, at which time the RONNIE drain will be removed. The patient reports some abdominal distension and pain but feels ready for discharge. He denies chest pain, shortness of breath, nausea, vomiting, or diarrhea. - Vitals & Intake/Output Vital Signs: Vital Signs Temperature 97.8 F 04/04/25 09:00 Pulse Rate 81 04/04/25 09:00 Respiratory Rate 16 04/04/25 09:00 Blood Pressure 154/82 04/04/25 09:00 O2 Sat by Pulse Oximetry 92 L 04/04/25 09:00 Intake & Output: Intake & Output 04/01/25 04/02/25 04/03/25 04/04/25 11:59 11:59 11:59 11:59 Intake Total 612 0375 Output Total 88 Balance 612 2519 Weight 105.6 kg 105.6 kg - Lab Result Diagrams: 04/04/25 04:59 04/04/25 04:59 Lab Results-Last 24 Hrs: Lab Results-Last 24 Hours 04/03/25 04/04/25 04/04/25 Range/Units 13:14 04:59 04:59 WBC 12.2 H (4.23-9.07) x10^3/uL RBC 4.81 (4.63-6.08) x10^6/uL Hgb 13.8 (13.7-17.5) g/dL Hct 43.3 (40.1-51.0) % MCV 90.0 (79.0-92.2) fL MCH 28.7 (25.7-32.2) pg MCHC 31.9 L (32.3-36.5) g/dL RDW 14.0 (11.6-14.4) % Plt Count 273 (163-337) x10^3/uL MPV 10.4 (9.4-12.4) fL Gran % 84.9 H (34.0-67.9) % Immature Gran % (Auto) 0.5 H (0.001-0.429) % Nucleat RBC Rel Count 0.0 (0.00-0.2) % Eos # (Auto) 0.03 L (0.04-0.54) x10^3/uL Immature Gran # (Auto) 0.06 H (0.001-0.031) x10^3u/L Absolute Lymphs (auto) 0.93 L (1.32-3.57) x10^3/uL Absolute Monos (auto) 0.81 (0.30-0.82) x10^3/uL Absolute Nucleated RBC 0.00 (0.00-0.012) x10^3u/L Lymphocytes % 7.6 L (21.8-53.1) % Monocytes % 6.7 (5.3-12.2) % Eosinophils % 0.2 L (0.8-7.0) % Basophils % 0.1 L (0.2-1.2) % Absolute Granulocytes 10.33 H (1.78-5.38) x10^3/uL Basophils # 0.01 (0.01-0.08) x10^3/uL Sodium 138 (135-145) mmol/L Potassium 5.1 (3.5-5.1) mmol/L Chloride 100 (98-107) mmol/L Carbon Dioxide 27 (22-30) mmol/L Anion Gap 15.7 H (5-15) MEQ/L BUN 10 (9-20) mg/dL Creatinine 0.76 (0.66-1.25) mg/dL Estimated GFR 101.6 ML/MIN Glucose 113 H (74-106) mg/dL POC Glucometer 105 (74 to 106) mg/dL Calcium 8.9 (8.4-10.2) mg/dL Total Bilirubin 0.40 (0.2-1.3) mg/dL AST 52 (17-59) U/L ALT 42 (0-50) U/L Alkaline Phosphatase 66 (38-126) U/L Serum Total Protein 6.8 (6.3-8.2) g/dL Albumin 4.0 (3.5-5.0) g/dL - Radiology Exams Ordered Rad Exams-Entire Visit: Radiology Procedures Category Date Time Status ABDOMEN AND PELVIS W/0 CONTRAS [CT] Stat Exams 04/03/25 02:14 Completed - Procedures and Test Procedures and Tests throughout Hospitalization: Therapy Orders & Screens 04/03/25 05:23 Incentive Spirometry TID Comment: Diagnosis: Calculus cholecystitis 04/03/25 05:49 Smoking Cessation Education ONCE Comment: Diagnosis: Calculus cholecystitis Smoking Status: Current every day smoker Do you dip or chew tobacco: No Discharge Exam General Appearance: no apparent distress, alert, obese Neurologic Exam: alert, oriented x 3, cooperative, normal mood/affect, nml cerebellar function, sensation nml, No motor deficits Eye Exam: PERRL, EOMI, eyes nml inspection Ears, Nose, Throat Exam: normal ENT inspection, pharynx normal, moist mucous membranes Neck Exam: normal inspection, non-tender, supple, full range of motion Respiratory Exam: normal breath sounds, lungs clear, No respiratory distress Cardiovascular Exam: regular rate/rhythm, normal heart sounds Gastrointestinal/Abdomen Exam: soft, tenderness, distention, No mass Male Genitalia Exam: deferred Rectal Exam: deferred Back Exam: normal inspection, normal range of motion, No CVA tenderness, No vertebral tenderness Extremity Exam: normal inspection, normal range of motion Skin Exam: normal color, warm, dry Wound Assessment: Skin/Wound Assessment Wound/Incision Assessment Start: 04/04/25 08:36 Text: Status: Active Freq: Q6H Protocol: Document 04/04/25 08:00 [facility] (Rec: 04/04/25 08:38 [facility] [id number]) Wound/Incision Assessment Anterior Abdomen Wound Assessment Shift Assessment Wound Type Incision Wound Stage Non Pressure Wound Dressing Status Dry & Intact Drainage Amount None Drainage Odor None/Absent Primary Dressing Gauze Pads Secondary Dressing tegaderm Comment POD #1, 4 incisions, unable to assess, drsg remains C/D/I with no shadowing noted. drsg consists of gauze and tegaderm . Right Anterior Abdomen Drain Type RONNIE drain Drainage Description Sanguineous Odor None/Absent Comment 1 RONNIE drain Wound Photo Photo Taken No Final Diagnosis/Problem List - Final Discharge Diagnosis/Problem (1) Cholecystitis Current Visit: Yes Status: Acute Assessment & Plan: - POD #2 lap choley - Ok to d/c with Augmentin per GS - Pain meds sent in by GS - RONNIE in place and to remain until f/u. - CBC, CMP reviewed - IVF - Narcotic pain med - Antiemetic - Encouraged pt to walk to help with abd. distention and gas pain. Code(s): K81.9 - CHOLECYSTITIS, UNSPECIFIED (2) Leukocytosis Current Visit: Yes Status: Acute Assessment & Plan: - WBC 12.2 - 2:2 Cholecystitis Code(s): D72.829 - ELEVATED WHITE BLOOD CELL COUNT, UNSPECIFIED (3) Right upper quadrant pain Current Visit: Yes Status: Acute Assessment & Plan: - 2:2 Colecystitis - Narcotic pain control - Abd ct/pelvis reviewed Code(s): R10.11 - RIGHT UPPER QUADRANT PAIN - Discharge Discharge Date: 04/04/25 Disposition: Home, Self-Care Condition: Stable Prescriptions: New Hydrocodone/Acetaminophen [Hydrocodone-Acetamin 5-325 mg] 1 tab PO Q6HPRN PRN 7 Days #20 tablet MDD 4 PRN Reason: Pain Continue Tamsulosin HCl [Flomax] 0.4 mg PO DAILY Potassium Chloride Tab* [Klor Con] 20 meq PO DAILY Furosemide 20 mg [Lasix 20 mg] 20 mg PO DAILY armodafiniL [Armodafinil] 150 mg PO DAILY Testosterone Cypionate 0.5 ml SQ WEEKLY Instructions: Cholecystectomy - Discharge instructions, How to care for a closed suction drain Additional Instructions: You may shower on POD #2 Keep drsg intact until POD #2 may keep open to air unless draining. Keep track of your drain output. Start over the counter probiotics if you develop diarrhea from antibiotics. Follow up with: SUSI THORNTON MD [Primary Care Provider, [facility]] - 04/11/25 11:00 am TESSY MENDOZA MD [ACTIVE STAFF, GENERAL SURGERY] - 04/17/25 8:40 am Referral Note: [facility]
[2025-04-04 13:43] VITALS: BP 130/73; PULSE 76; TEMP 97.6; O2SAT 94
--- NOTE | 2025-04-07 09:01 | OP ---
SURGERY DATE/TIME: 04/03/2025 1531 - 1642 PREOPERATIVE DIAGNOSIS: Acute cholecystitis. POSTOPERATIVE DIAGNOSIS: Acute cholecystitis. PROCEDURE: Laparoscopic cholecystectomy. SURGEON: Jamel Membreno MD ANESTHESIA: General. ESTIMATED BLOOD LOSS: Minimal. PATIENT CONDITION: Stable. COMPLICATIONS: None. SPECIMEN: Gallbladder. INDICATIONS: The patient is a 64-year-old male who presents with acute abdominal pain, [place] sign on exam, nonobstructive labs, and CT scan showing a stone at the neck of the gallbladder, acutely inflamed. Discussion had with the patient and family and recommendations for cholecystectomy. He elects to proceed. Risk of infection, bleeding, injury to nearby structure, hernia discussed. FINDINGS: Critical view. Acutely inflamed thickened wall. DESCRIPTION OF PROCEDURE: The patient was brought to the operating room. Routinely positioned, prepped, and draped. Time-out performed. Received preoperative antibiotic. The 5 mm Optiview trocar placed in the left upper quadrant. Pneumoperitoneum established. The 11 mm right paramedian trocar placed. Two additional 5 mm trocars placed in the right upper quadrant. The patient is positioned. The gallbladder is acutely edematous with a thickened wall and distended. It is able to be grasped without decompression. The cystic duct and cystic artery are dissected out with mostly blunt dissection. Critical view is clearly obtained. Both are clipped with 5 mm metal clip felt hat pouncing operator hand and then divided. Gallbladder was taken off the liver bed, placed in a specimen bag, and removed through the bag, but it did require morselization with ringed forceps inside the bag. The trocar reinserted. Right upper quadrant was reinspected. The liver bed is a little friable and oozy. It is cauterized. There is good hemostasis. A Nu-Knit Surgicel is placed in the gallbladder fossa that is totally dry and hemostatic. A 7 mm drain placed and brought out the right medial trocar site. The 11 trocar closed with 0 Vicryl interrupted suture passer. The skin is closed with 4-0 Vicryl sutures. Marcaine had been injected. Steri-Strips and sterile dressings applied. All counts were correct. Patient tolerated the procedure well. Plan is for extubation.
== END 2025-04-04 14:20 | disposition home or self-care (01) ==
LOC: ED 01:46 → MED SURG 05:03
PROVIDERS: ADMIT Internal Medicine; ATTEND Internal Medicine
DX: K81.9 Cholecystitis, unspecified (principal); D72.829 Elevated white blood cell count, unspecified; R10.11 Right upper quadrant pain; K59.00 Constipation, unspecified; Z79.899 Other long term (current) drug therapy; F17.200 Nicotine dependence, unspecified, uncomplicated
CPT/HCPCS: 36415; 47562; 74176; 80053; 81001; 82947; 83690; 84484; 85025; 96374; 99285; G0378; Q3014; 99284; J0694; J0696; J1100; J1885; J2405; J2704; J3010; A9270-GY

== ENCOUNTER 2025-09-17 06:09 | Day surgery (SDC) | payer BC ==
[2025-09-17] MEDS ORDERED: CEFAZOLIN SODIUM ONE (06:22)
[2025-09-17] MEDS: Lactated Ringers 1,000 ML IV SCH (06:31)
[2025-09-17 06:40] VITALS: RESP 16
[2025-09-17 06:56] LABS: Calcium 9.0 mg/dL (8.4-10.2); Carbon Dioxide 23.0 mmol/L (22-30); Creatinine 1 0.7 mg/dL (0.66-1.25); EST GLOMERULAR FILTRATION RATE 103.5 ML/MIN; Glucose 107.0 mg/dL (74-106); Potassium 4.4 mmol/L (3.5-5.1); SGOT/AST 32.0 U/L (17-59); SGPT/ALT 35.0 U/L (0-50); Total Protein 7.7 g/dL (6.3-8.2)
[2025-09-17] MEDS ORDERED: SUBLIMAZE 100 MCG/2 ML ONE (07:16)
[2025-09-17] MEDS ORDERED: Xylocaine-Mpf 2% 5 Ml Vial ONE (07:16)
[2025-09-17] MEDS ORDERED: Versed 2 MG/2 ML Injection ONE (07:16)
[2025-09-17] MEDS ORDERED: propofoL IV ONE (07:16)
[2025-09-17] MEDS ORDERED: Sensorcaine 0.25% 10 ML ONE (07:33)
[2025-09-17 09:36] VITALS: BP 127/88; PULSE 74; TEMP 97; O2SAT 96
--- NOTE | 2025-09-18 11:16 | OP ---
SURGERY DATE/TIME: 09/17/2025 [id number] PREOPERATIVE DIAGNOSIS: Right carpal tunnel syndrome. POSTOPERATIVE DIAGNOSIS: Right carpal tunnel syndrome. PROCEDURE: Right carpal tunnel release. SURGEON: Javier Andrade MD TOPPER PRESS OPERATOR: None. ANESTHESIA: General. INDICATIONS: The patient is a 65-year-old male who presented with an approximately 2-year history of right hand numbness and tingling, with associated pain as well at times. EMG study revealed moderate carpal tunnel syndrome. We discussed options, and he wants to proceed with right carpal tunnel release. I explained risks associated with the procedure including, but not limited to, infection, pain, bleeding, damage to surrounding structures, stiffness, recurrence, and need for further procedures. After explaining all the risks, benefits, and alternative treatment options, he desired to proceed with surgery. DESCRIPTION OF PROCEDURE AND FINDINGS: The patient was taken to the operating room and placed in supine position. IV antibiotics were administered and general anesthesia was administered as well. A tourniquet was applied to the right upper arm. The right upper extremity was then prepped and draped in standard sterile fashion. An Esmarch was used to exsanguinate the limb and the tourniquet was inflated to 250 mmHg. At this time, a longitudinal incision was made at the base of the palm, just ulnar to the thenar crease. Dissection was carried down and the transverse carpal ligament was identified. The ligament was then transected longitudinally, protecting the underlying structures. The distal volar forearm fascia was then released proximally using scissors. The wound was then thoroughly irrigated with normal saline and the tourniquet was released. The incision was then approximated with 4-0 nylon sutures in a simple interrupted fashion. The lucía-incisional area was then injected with 0.5% Marcaine. A sterile dressing was then applied. Estimated blood loss was minimal and there were no complications. The patient was then awakened from anesthesia and taken to the recovery room in stable condition.
== END 2025-09-17 10:02 | disposition home or self-care (01) ==
LOC: SDC 06:09
PROVIDERS: ATTEND Orthopaedic Surgery
DX: G56.01 Carpal tunnel syndrome, right upper limb (principal)